=== PATIENT | male | born 1990 | race Hispanic/Latino ===

== ENCOUNTER 2021-03-26 10:31 | Emergency (ER) | payer BC ==
[~2021-03-26] VITALS: Ht 177.8 cm; Wt 99.8 kg
[~2021-03-26 10:31] MED LIST: CRUTCH1 EACH; NAPROSYN500 MG PO
[2021-03-26] MEDS ORDERED: AMOXICILLIN500 MG PO (10:56)
== END 2021-03-26 11:07 | disposition home or self-care (01) ==
LOC: ED 10:31
DX: H66.92 Otitis media, unspecified, left ear (principal)
CPT/HCPCS: 99282

== ENCOUNTER 2022-08-03 13:41 | Emergency (ER) | payer SELFPAY ==
[~2022-08-03] VITALS: Ht 177.8 cm; Wt 86.2 kg
[~2022-08-03 13:41] MED LIST changes: +AMOXICILLIN500 MG PO
[2022-08-03] MEDS ORDERED: HYDROCODON-ACE1 EA10 PO (14:30)
[2022-08-03] MEDS ORDERED: CEPHALEXIN500 M1 PO (14:30)
[2022-08-03 14:52] VITALS: BP 127/87
== END 2022-08-03 14:52 | disposition home or self-care (01) ==
LOC: ED 13:41
DX: S92.421B Displaced fracture of distal phalanx of right great toe, initial encounter for open fracture (principal); W20.8XXA Other cause of strike by thrown, projected or falling object, initial encounter
CPT/HCPCS: 73660; 90471; 90715; 99283-25; A9270